=== PATIENT | female | born 1980 | race Caucasian/White ===

== ENCOUNTER 2023-05-15 15:36 | Emergency (ER) | payer MEDICAID ==
[~2023-05-15] VITALS: Ht 157.5 cm; Wt 90.0 kg
[2023-05-15 15:45] VITALS: BP 130/74; RESP 20; TEMP 98.2; O2SAT 98
[2023-05-15 16:01] VITALS: PULSE 94
[2023-05-15 16:46] LABS: BASOPHILS % 0.8 % (0.0-2.0); EOSINOPHILS % 2.7 % (0.0-5.0); HEMATOCRIT. 34.4 % (36.0-48.0); HEMOGLOBIN. 11.8 g/dL (12.0-16.0); LYMPHOCYTES % 31.2 % (20.0-50.0); MEAN CORPUSCULAR HEMOGLOBIN 29.6 pg (28.0-32.0); MEAN CORPUSCULAR VOLUME 86.6 fL (81.0-99.0); MEAN PLATELET VOLUME 7.7 fl (7.4-10.4); MONOCYTES % 6.3 % (2.0-8.0); PLATELET 262 x1000/uL (130-400); RED BLOOD CELL COUNT 3.97 mill/uL (4.2-5.4); RED CELL DISTRIBUTION WIDTH 14.4 % (11.6-14.6)
[2023-05-15 16:49] LABS: CHLORIDE 106 mEq/L (98-107)
[2023-05-15 16:56] LABS: HCG SCREEN POSITIVE
[2023-05-15 17:11] LABS: CLARITY URINE TURBID (CLEAR); COLOR URINE YELLOW (YELLOW); KETONES URINE TRACE (NEGATIVE); LEUKOCYTE ESTERASE URINE 2+ (NEGATIVE); NITRITE URINE NEGATIVE (NEGATIVE); OCCULT BLOOD URINE 3+ (NEGATIVE); PROTEIN URINE TRACE (NEGATIVE); SPECIFIC GRAVITY URINE 1.029 (1.005-1.030); UROBILINOGEN URINE 0.2 E.U./dL (0.2-1.0)
== END 2023-05-15 21:26 | disposition left against medical advice (07) ==
LOC: ER 15:36
DX: O46.91 Antepartum hemorrhage, unspecified, first trimester (principal); Z3A.01 Less than 8 weeks gestation of pregnancy
CPT/HCPCS: 36415; 76801; 80053; 81003; 81025; 84702; 84703; 85025; 86850; 86900; 99284

== ENCOUNTER 2023-05-27 15:15 | Emergency (ER) | payer MEDICAID ==
[~2023-05-27] VITALS: Ht 152.4 cm; Wt 79.0 kg
[2023-05-27 15:20] VITALS: BP 138/85; O2SAT 99
[2023-05-27 20:31] LABS: CLARITY URINE CLOUDY (CLEAR); COLOR URINE RED (YELLOW); KETONES URINE NEGATIVE (NEGATIVE); LEUKOCYTE ESTERASE URINE 1+ (NEGATIVE); NITRITE URINE NEGATIVE (NEGATIVE); OCCULT BLOOD URINE 3+ (NEGATIVE); PH URINE 6.5 (4.5-8.0); PROTEIN URINE 1+ (NEGATIVE); SPECIFIC GRAVITY URINE 1.017 (1.005-1.030)
[2023-05-27 20:54] LABS: BASOPHILS % 1.4 % (0.0-2.0); HEMATOCRIT. 35.6 % (36.0-48.0); LYMPHOCYTES % 32.1 % (20.0-50.0); MEAN CORPUSCULAR HEMOGLOBIN 29.4 pg (28.0-32.0); MEAN PLATELET VOLUME 7.7 fl (7.4-10.4); MONOCYTES % 8.1 % (2.0-8.0); NEUTROPHILS % 54.4 % (40.0-76.0); PLATELET 275 x1000/uL (130-400); RED BLOOD CELL COUNT 4.09 mill/uL (4.2-5.4)
[2023-05-27 21:04] LABS: CHLORIDE 105 mEq/L (98-107)
[2023-05-27 21:18] LABS: B-HCG QUANTITATIVE 402 mIU/mL (<3)
[2023-05-27 21:57] VITALS: PULSE 87; RESP 20; TEMP 98.5
== END 2023-05-27 21:50 | disposition home or self-care (01) ==
LOC: ER 15:15
DX: O03.9 Complete or unspecified spontaneous abortion without complication (principal); Z3A.10 10 weeks gestation of pregnancy
CPT/HCPCS: 36415; 76801; 80053; 81003; 81025; 84702; 85025; 86850; 86900; 99284

== ENCOUNTER 2024-03-30 10:06 | Emergency (ER) | payer MEDICAID, OTHER ==
[~2024-03-30] VITALS: Ht 162.6 cm; Wt 95.0 kg
[2024-03-30 10:15] VITALS: O2SAT 99
[2024-03-30] MEDS ORDERED: KETOROLAC 60MG/2ML VIAL IM ONE (12:15)
[2024-03-30] MEDS ORDERED: IBUP-2030 MT (12:17)
[2024-03-30] MEDS ORDERED: TRAM50TA3 MT (12:17)
[2024-03-30] MEDS: ACETAMINOPHEN 325MG TABLET PO NR (13:36)
[2024-03-30] MEDS: KETOROLAC 30MG/ML VIAL IM NR (13:36)
[2024-03-30 15:19] VITALS: BP 128/78; PULSE 76; RESP 18; TEMP 97.9
== END 2024-03-30 15:20 | disposition home or self-care (01) ==
LOC: ER 10:06
DX: S83.8X2A Sprain of other specified parts of left knee, initial encounter (principal); X58.XXXA Exposure to other specified factors, initial encounter; Y93.89 Activity, other specified; Y92.89 Other specified places as the place of occurrence of the external cause; Y99.8 Other external cause status
CPT/HCPCS: 73560; 96372; 99283; J1885; Z7610; L1830

== ENCOUNTER 2024-05-16 19:23 | Emergency (ER) | payer MEDICAID ==
[~2024-05-16] VITALS: Ht 152.4 cm; Wt 95.0 kg
[~2024-05-16 19:23] MED LIST: IBUP-2030 MT; TRAM50TA3 MT
[2024-05-16 19:42] VITALS: BP 132/89; PULSE 101; RESP 14; TEMP 98; O2SAT 100
[2024-05-16 20:47] LABS: EOSINOPHILS % 4.7 % (0.0-5.0); HEMOGLOBIN. 11.9 g/dL (12.0-16.0); LYMPHOCYTES % 29.5 % (20.0-50.0); MEAN CORPUSCULAR HEMOGLOBIN 27.8 pg (28.0-32.0); MEAN CORPUSCULAR HGB CONC 33.1 g/dL (31.0-37.0); MEAN CORPUSCULAR VOLUME 84.1 fL (81.0-99.0); MEAN PLATELET VOLUME 7.6 fl (7.4-10.4); MONOCYTES % 12.9 % (2.0-8.0); NEUTROPHILS % 51.9 % (40.0-76.0); PLATELET 337 x1000/uL (130-400); RED BLOOD CELL COUNT 4.28 mill/uL (4.2-5.4); RED CELL DISTRIBUTION WIDTH 14.1 % (11.6-14.6); WHITE BLOOD COUNT 4.9 x1000/uL (4.5-11.0)
[2024-05-16 20:52] LABS: CHLORIDE 107 mEq/L (98-107); POTASSIUM 3.6 mEq/L (3.5-5.1); SODIUM 137 mEq/L (136-145)
[2024-05-16 20:53] LABS: CALCIUM 8.9 mg/dL (8.7-10.4); CARBON DIOXIDE 20 mEq/L (21-32)
[2024-05-16 20:58] LABS: CREATININE 0.7 mg/dL (0.6-1.0); GLUCOSE 120 mg/dL (70-105)
[2024-05-16 20:59] LABS: UREA NITROGEN BLOOD 13 mg/dL (9-23)
[2024-05-16 21:00] LABS: ALANINE AMINOTRANSFERASE 28 IU/L (10-49); ALBUMIN 4.4 g/dL (3.2-4.8); ASPARTATE AMINOTRANSFERASE 25 IU/L (<34)
[2024-05-16 21:01] LABS: BILIRUBIN TOTAL 0.2 mg/dL (0.1-1.0); PROTEIN TOTAL 7.2 g/dL (6.0-8.3)
[2024-05-16] MEDS: ONDANSETRON 4MG ODT PO STA (21:03)
[2024-05-16 21:09] LABS: HCG SCREEN NEGATIVE
[2024-05-16 21:12] LABS: BILIRUBIN DIRECT < 0.1 mg/dL (<=3.0)
[2024-05-16] MEDS ORDERED: ONDA4TAB11 PO (22:03)
== END 2024-05-16 22:21 | disposition home or self-care (01) ==
LOC: ER 19:23
DX: R11.2 Nausea with vomiting, unspecified (principal); R10.816 Epigastric abdominal tenderness
CPT/HCPCS: 99283; 80076; 80048; 84703; 83690; 85025; 36415; Q0162

== ENCOUNTER 2024-07-28 18:37 | Emergency (ER) | payer MEDICAID, OTHER ==
[~2024-07-28] VITALS: Ht 152.4 cm; Wt 73.0 kg
[~2024-07-28 18:37] MED LIST changes: +ONDA-239 PO
[2024-07-28 19:26] VITALS: BP 127/71; PULSE 88; RESP 16; TEMP 98.3; O2SAT 99
[2024-07-28 21:26] LABS: BASOPHILS % 0.9 % (0.0-2.0); HEMATOCRIT. 33.1 % (36.0-48.0); HEMOGLOBIN. 10.8 g/dL (12.0-16.0); LYMPHOCYTES % 39.6 % (20.0-50.0); MEAN CORPUSCULAR HEMOGLOBIN 28.2 pg (28.0-32.0); MEAN CORPUSCULAR HGB CONC 32.7 g/dL (31.0-37.0); MEAN CORPUSCULAR VOLUME 86.3 fL (81.0-99.0); MEAN PLATELET VOLUME 7.7 fl (7.4-10.4); MONOCYTES % 10.5 % (2.0-8.0); PLATELET 339 x1000/uL (130-400); RED BLOOD CELL COUNT 3.83 mill/uL (4.2-5.4); RED CELL DISTRIBUTION WIDTH 13.9 % (11.6-14.6); WHITE BLOOD COUNT 6.8 x1000/uL (4.5-11.0)
[2024-07-28 21:34] LABS: CHLORIDE 107 mEq/L (98-107); POTASSIUM 3.9 mEq/L (3.5-5.1); SODIUM 140 mEq/L (136-145)
[2024-07-28 21:35] LABS: CARBON DIOXIDE 26 mEq/L (21-32)
[2024-07-28 21:40] LABS: CREATININE 0.7 mg/dL (0.6-1.0)
[2024-07-28 21:41] LABS: GLUCOSE 83 mg/dL (70-105); UREA NITROGEN BLOOD 12 mg/dL (9-23)
[2024-07-28 21:42] LABS: ALANINE AMINOTRANSFERASE 17 IU/L (10-49)
[2024-07-28 21:43] LABS: ALBUMIN 4.4 g/dL (3.2-4.8); ASPARTATE AMINOTRANSFERASE 15 IU/L (<34); BILIRUBIN TOTAL 0.2 mg/dL (0.1-1.0); PROTEIN TOTAL 6.8 g/dL (6.0-8.3)
[2024-07-28 21:44] LABS: BILIRUBIN DIRECT < 0.1 mg/dL (<=3.0)
[2024-07-29 00:29] LABS: HCG SCREEN NEGATIVE
[2024-07-29] MEDS ORDERED: SENN-215 MT (02:20)
== END 2024-07-29 03:47 | disposition home or self-care (01) ==
LOC: ER 18:37
DX: K59.00 Constipation, unspecified (principal)
CPT/HCPCS: 36415; 74176; 80048; 80076; 84703; 85025; 99284